=== PATIENT | female | born 1935 | race Caucasian/White ===

== ENCOUNTER 2017-11-08 12:11 | Outpatient (CLI) | payer MEDICARE, OTHER | END 2017-11-08 12:12 | disposition home or self-care (01) | LOC: BICMAMMO 12:11 | PROVIDERS: ATTEND Internal Medicine | DX: Z12.31 Encounter for screening mammogram for malignant neoplasm of breast (principal) | CPT/HCPCS: 77063; 77067 ==

== ENCOUNTER 2019-04-29 09:42 | Outpatient (CLI) | payer MEDICARE ==
--- NOTE | 2019-04-29 10:11 | ULT ---
US Gallbladder RUQ: 04/29/2019 12:00 AM CLINICAL HISTORY: Abnormal LFTs. STUDY: Limited right upper quadrant ultrasound of abdomen. COMPARISON: None. FINDINGS: Liver: Size: Normal. Echogenicity: Normal. Contour: Smooth. Mass: None. Bile ducts: No intrahepatic or extrahepatic biliary dilatation. Common bile duct measures 2 mm. Gallbladder: Normal. Pancreas: Head, body, and tail appear normal. Right kidney: No pelvicalyceal dilatation. Right kidney measuring 9.1 cm in length. IMPRESSION: Unremarkable exam.
== END 2019-04-29 09:43 | disposition home or self-care (01) ==
LOC: ULT 09:42
PROVIDERS: ATTEND Internal Medicine
DX: R94.5 Abnormal results of liver function studies (principal)
CPT/HCPCS: 76705

== ENCOUNTER 2019-07-03 09:50 | Outpatient (CLI) | payer MEDICARE ==
--- NOTE | 2019-07-03 10:37 | CT ---
CT of theabdomen and pelvis: 07/03/2019 COMPARISON:03/08/2015 HISTORY:Abnormal weight loss, abnormal liver function tests TECHNIQUE: Serial axial CT imaging at5 mm from thelung bases through pubic symphysis with IV and oral contrast. Coronal and sagittal reformatted imaging obtained Findings:Imaged lung bases unremarkable. Cholecystectomy clips present. No free intraperitoneal air o r fluid. Stable moderate sized sliding hiatal hernia. The liver, spleen, pancreas, adrenal glands, and kidneys appear grossly unremarkable. Uterus appears surgically absent. There is extensive diverticulosis of the distal descending colon an d the sigmoid colon with no evidence for acute diverticulitis. No evidence for bowel inflammatory change or bowel obstruction. Scattered atherosclerotic calcification of the abdominal aorta and its branches. No lymphadenopathy is noted within the retroperitoneum, the mesentery, or the pelvis. The osseous structures demonstrate lower lumbar spine facet hypertrophy and degenerative change at th e pubic symphysis with no worrisome lytic or blastic bone lesion. Impression:Incidental findings as detailed above. No acute findings are noted.
[2019-07-03] MEDS ORDERED: Iopamidol 370 76% 100 ML VIAL ONE (16:25)
== END 2019-07-03 09:51 | disposition home or self-care (01) ==
LOC: CT 09:50
PROVIDERS: ATTEND Physician Assistant Medical
DX: R63.4 Abnormal weight loss (principal); R94.5 Abnormal results of liver function studies
CPT/HCPCS: 74177; Q9967

== ENCOUNTER 2019-11-08 08:57 | Emergency (ER) | payer MEDICARE ==
[2019-11-08] MEDS ORDERED: Aspirin Chewable 81 MG TAB ONE (09:20)
[2019-11-08] MEDS ORDERED: Acetaminophen 500 MG TAB ONE (09:20)
[2019-11-08 09:25] LABS: #Basophils 0.1 thou/uL (0.0-0.2); #Eosinphils 0.1 thou/uL (0.0-0.7); #Monocytes 0.9 thou/uL (0.11-0.59); #Neutrophils 9.1 thou/uL (1.40-6.50); %Basophils 0.5 % (0.0-1.0); %Eosinophils 1.1 % (0.0-10.0); %Monocytes 6.5 % (0.0-10.0); Hemoglobin 12.2 g/dL (12.0-16.0); Mean Corpuscular HGB CONC 33.1 g/dL (32.0-36.0); Mean Corpuscular Hemoglobin 29.6 pg (27.0-31.0); Mean Corpuscular Volume 89.6 fL (78.0-98.0); Platelet Count 261 thou/uL (130-400); RBC Distribution Width 13.4 % (11.5-14.5); Red Blood Cell (RBC) Count 4.12 mill/uL (4.20-5.40); White Blood Cell (WBC) Count 13.1 thou/uL (4.8-10.8)
--- NOTE | 2019-11-08 09:27 | RAD ---
EXAM: Single view of the chest HISTORY: Chest pain COMPARISON: 08/05/2019 FINDINGS: Single view of the chest shows a normal sized cardiomediastinal silhouette. A pacemaker se en with leads in the right atrium and ventricle. There is no evidence of consolidation, mass, or pleural effusion. The bones are unremarkable. IMPRESSION: No evidence of acute cardiopulmonary disease
[2019-11-08] MEDS ORDERED: Iopamidol-370 76% 500 ML 1 ML ONE (09:37)
[2019-11-08 09:39] LABS: ALT (SGPT) 39 U/L (8-55); AST (SGOT) 41 U/L (5-34); Albumin 4.2 g/dL (3.4-4.8); Alkaline Phosphatase 85 U/L (40-110); Anion Gap 16 mmol/L (10-20); BUN (Urea Nitrogen) 35 mg/dL (9.8-20.1); Bilirubin, Total 0.5 mg/dL (0.2-1.2); CK (CPK) 37 U/L (29-168); Calc. Creatinine Clearance 0 mL/min (70-130); Calcium 9.2 mg/dL (7.8-10.44); Carbon Dioxide 23 mmol/L (23-31); Chloride 105 mmol/L (98-107); Estimated GFR-MDRD 40; Globulin 3.3 g/dL (2.4-3.5); Glucose 183 mg/dL (83-110); Potassium 4.5 mmol/L (3.5-5.1); Protein, Total 7.5 g/dL (6.0-8.3); Sodium 139 mmol/L (136-145)
[2019-11-08] MEDS ORDERED: methylPREDNISolone Sod Succ/PF 125 MG/2 ML VIAL ONE (11:27)
[2019-11-08] MEDS ORDERED: diphenhydrAMINE 50 MG/ML VIAL ONE (11:27)
[2019-11-08] MEDS ORDERED: Famotidine/PF 20 mg/2ml Vial ONE (11:27)
--- NOTE | 2019-11-08 12:30 | CT ---
EXAM: CTA of the chest HISTORY: Chest pain since yesterday evening COMPARISON: None TECHNIQUE: Multiple contiguous axial images were obtained a CTA of the chest with contrast per pulmon darrian embolism protocol. 3-D oblique MIP reformats and direct coronal reformats were performed. FINDINGS: HEART: Normal in size. There is a small pericardial effusion. A pacemaker seen with leads in the righ t atrium and ventricle. Atherosclerotic calcifications in the coronary arteries and aorta. PULMONARY ARTERIES: Normal in caliber without filling defects to suggest pulmonary emboli. MEDIASTINUM: No hilar or mediastinal lymphadenopathy. Moderate hiatal hernia LUNGS: No focal infiltrates or masses. PLEURAL SPACE: No pleural effusion or pneumothorax. CHEST WALL SOFT TISSUES: Unremarkable VISUALIZED OSSEOUS STRUCTURES: Degenerative changes in the spine. VISUALIZED SUBDIAPHRAGMATIC STRUCTURES: Unremarkable IMPRESSION: 1. No evidence of pulmonary thromboembolism 2. Pericardial effusion 3. Hiatal hernia
== END 2019-11-08 13:20 | disposition home or self-care (01) ==
LOC: ERS 08:57
DX: I31.3 Pericardial effusion (noninflammatory) (principal); R07.89 Other chest pain; I25.10 Atherosclerotic heart disease of native coronary artery without angina pectoris; I48.91 Unspecified atrial fibrillation; E11.9 Type 2 diabetes mellitus without complications; I10 Essential (primary) hypertension; Z79.84 Long term (current) use of oral hypoglycemic drugs; Z79.899 Other long term (current) drug therapy; Z79.82 Long term (current) use of aspirin
CPT/HCPCS: 71045; 71275; 80053; 82550; 84484; 85025; 93005; 94760; 96374; 96375; J1200; J2930; Q9967; S0028

== ENCOUNTER 2020-08-09 05:11 | Observation (INO) | payer MEDICARE ==
[2020-08-09] MEDS ORDERED: Aspirin Chewable 81 MG TAB ONE (05:32)
[2020-08-09] MEDS ORDERED: Acetaminophen 325 MG TAB ONE (05:32)
[2020-08-09 05:49] LABS: #Eosinphils 0.2 thou/uL (0.0-0.7); #Lymphocytes 1.7 thou/uL (1.20-3.40); #Monocytes 0.8 thou/uL (0.11-0.59); #Neutrophils 7.6 thou/uL (1.40-6.50); %Basophils 0.3 % (0.0-1.0); %Eosinophils 2.1 % (0.0-10.0); %Lymphocytes 16.8 % (21.0-51.0); %Monocytes 7.3 % (0.0-10.0); %Neutrophils 73.6 % (42.0-75.0); Hemoglobin 13.7 g/dL (12.0-16.0); Mean Corpuscular HGB CONC 31.9 g/dL (32.0-36.0); Mean Corpuscular Hemoglobin 26.8 pg (27.0-31.0); Mean Platelet Volume 7.8 fL (7.4-10.4); Platelet Count 261 thou/uL (130-400); RBC Distribution Width 15.1 % (11.5-14.5); Red Blood Cell (RBC) Count 5.12 mill/uL (4.20-5.40); White Blood Cell (WBC) Count 10.3 thou/uL (4.8-10.8)
[2020-08-09 06:08] LABS: ALT (SGPT) 12 U/L (8-55); AST (SGOT) 18 U/L (5-34); Albumin 3.8 g/dL (3.4-4.8); Alkaline Phosphatase 89 U/L (40-110); Anion Gap 16 mmol/L (10-20); BUN (Urea Nitrogen) 42 mg/dL (9.8-20.1); Bilirubin, Total 0.4 mg/dL (0.2-1.2); Calc. Creatinine Clearance 0 mL/min (70-130); Calcium 9.4 mg/dL (7.8-10.44); Carbon Dioxide 23 mmol/L (23-31); Chloride 104 mmol/L (98-107); Globulin 3.1 g/dL (2.4-3.5); Glucose 178 mg/dL (83-110); Potassium 4.6 mmol/L (3.5-5.1); Protein, Total 6.9 g/dL (5.8-8.1); Sodium 138 mmol/L (136-145)
[2020-08-09] MEDS ORDERED: Labetalol HCl 100 MG/20 ML VIAL ONE (06:32)
[2020-08-09] MEDS ORDERED: Dextrose 50% Abboject 50 ML SYRINGE SLOW IVP PRN (08:59)
[2020-08-09] MEDS ORDERED: Acetaminophen 325 MG TAB PO PRN (08:59)
[2020-08-09] MEDS ORDERED: HumaLOG 300 UNITS/3 ML VIAL SC PRN (08:59)
[2020-08-09] MEDS ORDERED: Ondansetron ODT 4 MG TAB PO PRN (08:59)
[2020-08-09] MEDS ORDERED: Dextrose 5% in Water 1,000 ML IV PRN (08:59)
[2020-08-09] MEDS ORDERED: Aspirin 325 mg Enteric Coated Tablet PO SCH (09:00)
[2020-08-09] MEDS ORDERED: Enoxaparin Sodium 40 MG/0.4 ML SYRINGE SC SCH (09:00)
[2020-08-09] MEDS ORDERED: Sodium Chloride 0.9% 1,000 ML IV SCH (09:15)
[2020-08-09 10:45] VITALS: BMI 22.6
[2020-08-09 15:33] VITALS: BP 173/76; TEMP 98.5
[2020-08-09 17:43] LABS: SARS-CoV-2 PCR NAA for Saliva Not Detected (NotDetected)
== END 2020-08-09 17:10 | disposition home or self-care (01) ==
LOC: ERS 05:11 → SUATTDRO 05:11 → 2SE 08:59
PROVIDERS: ADMIT Internal Medicine; ATTEND Internal Medicine
DX: R51.9 Headache, unspecified (principal); T50.B95A Adverse effect of other viral vaccines, initial encounter; R47.01 Aphasia; R53.1 Weakness; E11.22 Type 2 diabetes mellitus with diabetic chronic kidney disease; I12.9 Hypertensive chronic kidney disease with stage 1 through stage 4 chronic kidney disease, or unspecified chronic kidney disease; N18.30 Chronic kidney disease, stage 3 unspecified; I48.91 Unspecified atrial fibrillation; I25.10 Atherosclerotic heart disease of native coronary artery without angina pectoris; E78.5 Hyperlipidemia, unspecified; I45.10 Unspecified right bundle-branch block; I70.0 Atherosclerosis of aorta; Z66 Do not resuscitate; Z79.82 Long term (current) use of aspirin; Z79.84 Long term (current) use of oral hypoglycemic drugs; Z79.899 Other long term (current) drug therapy; Z91.041 Radiographic dye allergy status; Z95.0 Presence of cardiac pacemaker; Z20.822 Contact with and (suspected) exposure to COVID-19
CPT/HCPCS: 70450; 70551; 71045; 80053; 82962; 85025; 85652; 93005; 93880; 96372; 96374; 97139 ×4; 99285; G0378 ×2; U0003; U0005; 36416; 87635; J1650; J1815

== ENCOUNTER 2021-05-31 07:30 | Inpatient (IN) | payer MEDICARE ==
[2021-05-30 14:55] VITALS: BMI 24.6
[2021-05-31 08:34] LABS: Hemoglobin 13.8 g/dL (12.0-15.5); Mean Corpuscular HGB CONC 31.9 g/dL (32.0-36.0); Mean Corpuscular Hemoglobin 28.3 pg (27.0-33.0); Mean Corpuscular Volume 88.9 fl (81.6-98.3); Mean Platelet Volume 9.7 fl (7.4-10.4); Platelet Count 218 10x3/uL (150-450); RBC Distribution Width 15.8 % (11.5-14.5); Red Blood Cell (RBC) Count 4.87 10x6/uL (3.90-5.03)
[2021-05-31 08:43] LABS: Prothrombin Time 11.3 sec (9.5-12.1)
[2021-05-31 08:49] LABS: ALT (SGPT) 11 U/L (8-55); AST (SGOT) 15 U/L (5-34); Albumin 3.8 g/dL (3.4-4.8); Alkaline Phosphatase 88 U/L (40-110); Anion Gap 11 mmol/L (10-20); BUN (Urea Nitrogen) 29 mg/dL (9.8-20.1); Bilirubin, Total 0.5 mg/dL (0.2-1.2); Calc. Creatinine Clearance 0 mL/min (70-130); Calcium 9.4 mg/dL (7.8-10.44); Carbon Dioxide 27 mmol/L (23-31); Chloride 106 mmol/L (98-107); Globulin 2.9 g/dL (2.4-3.5); Glucose 172 mg/dL (83-110); Potassium 4.8 mmol/L (3.5-5.1); Protein, Total 6.7 g/dL (5.8-8.1); Sodium 139 mmol/L (136-145)
[2021-05-31 22:52] LABS: SARS-CoV-2 PCR by NAA Not Detected (NotDetected)
[2021-06-02] MEDS ORDERED: CEFAZOLIN 1 GM VIAL ONE (12:47)
[2021-06-02] MEDS ORDERED: Protamine Sulfate 50 MG/5 ML VIAL ONE (12:47)
[2021-06-02] MEDS ORDERED: Famotidine/PF 20 mg/2ml Vial ONE (12:47)
[2021-06-02] MEDS ORDERED: diphenhydrAMINE 50 MG/ML VIAL ONE (12:47)
[2021-06-02] MEDS ORDERED: Heparin 10,000 UNITS/ 10 ML VIAL ONE (13:18)
[2021-06-02] MEDS ORDERED: PROPOFOL 200 MG/20 ML VIAL ONE (13:23)
[2021-06-02] MEDS ORDERED: Glycopyrrolate 0.2 MG/ML 5 ML SYRINGE ONE (13:23)
[2021-06-02] MEDS ORDERED: ePHEDrine 50 MG/ML VIAL ONE (13:23)
[2021-06-02] MEDS ORDERED: Rocuronium Bromide 10 MG/ML (10ML VIAL) ONE (13:23)
[2021-06-02] MEDS ORDERED: Ondansetron PF 4 MG/2 ML Vial ONE (13:23)
[2021-06-02] MEDS ORDERED: methylPREDNISolone Sod Succ/PF 125 MG/2 ML VIAL ONE (13:25)
[2021-06-02] MEDS ORDERED: Iopamidol 370 76% 100 ML VIAL ONE (14:04)
== END 2021-06-02 19:25 | disposition home or self-care (01) | DRG 274 ==
LOC: SURG A 06-02 10:32
PROVIDERS: ADMIT Internal Medicine Cardiovascular Disease; ATTEND Internal Medicine Cardiovascular Disease
PROC: 02L73DK Occlusion of Left Atrial Appendage with Intraluminal Device, Percutaneous Approach (ICD-10-PCS; principal; 2021-06-02)
PROC: B24BZZ4 Ultrasonography of Heart with Aorta, Transesophageal (ICD-10-PCS; 2021-06-02)
DX: I48.21 Permanent atrial fibrillation (principal); I50.22 Chronic systolic (congestive) heart failure; Z00.6 Encounter for examination for normal comparison and control in clinical research program; Z20.822 Contact with and (suspected) exposure to COVID-19; I42.8 Other cardiomyopathies; I25.10 Atherosclerotic heart disease of native coronary artery without angina pectoris; I11.0 Hypertensive heart disease with heart failure; E11.9 Type 2 diabetes mellitus without complications; E78.00 Pure hypercholesterolemia, unspecified; M19.90 Unspecified osteoarthritis, unspecified site; Z95.1 Presence of aortocoronary bypass graft; Z86.73 Personal history of transient ischemic attack (TIA), and cerebral infarction without residual deficits; Z98.890 Other specified postprocedural states; Z90.710 Acquired absence of both cervix and uterus; Z90.49 Acquired absence of other specified parts of digestive tract; Z87.898 Personal history of other specified conditions; Z82.49 Family history of ischemic heart disease and other diseases of the circulatory system; Z79.01 Long term (current) use of anticoagulants; Z79.84 Long term (current) use of oral hypoglycemic drugs; Z79.899 Other long term (current) drug therapy; Z95.0 Presence of cardiac pacemaker; I44.2 Atrioventricular block, complete; Z91.041 Radiographic dye allergy status; R58 Hemorrhage, not elsewhere classified
CPT/HCPCS: 33340; 36430; 80053; 85027; 85347; 85610; 86850; 86900; 86901; 93312; 93662; C1759; C1776; J0690; J1200; J1644; J2405; J2704; J2720; J2930; J3490; Q9967; S0028; U0003; U0005

== ENCOUNTER 2021-05-31 07:40 | Outpatient (CLI) | payer MEDICARE | END 2021-05-31 07:41 | disposition home or self-care (01) | LOC: LABBT 07:40 | PROVIDERS: ATTEND Internal Medicine Cardiovascular Disease | DX: Z01.812 Encounter for preprocedural laboratory examination (principal); I48.21 Permanent atrial fibrillation; G45.9 Transient cerebral ischemic attack, unspecified; R58 Hemorrhage, not elsewhere classified; Z20.822 Contact with and (suspected) exposure to COVID-19 | CPT/HCPCS: 80053; 85027; 85610; 86850; 86900; 86901; 86920; U0003; U0005 ==

== ENCOUNTER 2021-07-11 08:11 | Outpatient (CLI) | payer MEDICARE ==
[2021-07-11 10:02] LABS: Hemoglobin 13.7 g/dL (12.0-15.5); Mean Corpuscular Hemoglobin 28.4 pg (27.0-33.0); Mean Corpuscular Volume 91.5 fl (81.6-98.3); Mean Platelet Volume 10.3 fl (7.4-10.4); Platelet Count 256 10x3/uL (150-450); Red Blood Cell (RBC) Count 4.83 10x6/uL (3.90-5.03); White Blood Cell (WBC) Count 8.9 10x3/uL (3.5-10.5)
[2021-07-11 10:26] LABS: Prothrombin Time 10.6 sec (9.5-12.1)
[2021-07-11 10:47] LABS: ALT (SGPT) 13 U/L (8-55); AST (SGOT) 15 U/L (5-34); Albumin 3.9 g/dL (3.4-4.8); Alkaline Phosphatase 99 U/L (40-110); Anion Gap 14 mmol/L (10-20); BUN (Urea Nitrogen) 37 mg/dL (9.8-20.1); Bilirubin, Total 0.5 mg/dL (0.2-1.2); Calc. Creatinine Clearance 0 mL/min (70-130); Calcium 9.3 mg/dL (7.8-10.44); Carbon Dioxide 26 mmol/L (23-31); Chloride 106 mmol/L (98-107); Glucose 144 mg/dL (83-110); Potassium 4.6 mmol/L (3.5-5.1); Protein, Total 6.9 g/dL (5.8-8.1); Sodium 141 mmol/L (136-145)
[2021-07-11 21:46] LABS: SARS-CoV-2 PCR by NAA Not Detected (NotDetected)
== END 2021-07-11 08:12 | disposition home or self-care (01) ==
LOC: LABBT 08:11
PROVIDERS: ATTEND Internal Medicine Cardiovascular Disease
DX: Z01.812 Encounter for preprocedural laboratory examination (principal); I48.21 Permanent atrial fibrillation; Z95.818 Presence of other cardiac implants and grafts; Z20.822 Contact with and (suspected) exposure to COVID-19; E78.5 Hyperlipidemia, unspecified; I48.0 Paroxysmal atrial fibrillation; E55.9 Vitamin D deficiency, unspecified; E11.9 Type 2 diabetes mellitus without complications
CPT/HCPCS: 80053 ×2; 80061; 82306; 83036; 84439; 84443; 85027; 85610; U0003; U0005; 36415

== ENCOUNTER 2021-07-14 06:28 | Day surgery (SDC) | payer MEDICARE ==
[2021-07-11 13:23] VITALS: BMI 24.6
[2021-07-14] MEDS ORDERED: Lidocaine 1% PF 5 ML VIAL ONE (07:11)
[2021-07-14] MEDS ORDERED: PROPOFOL 40 ML ONE (07:11)
[2021-07-14] MEDS ORDERED: PHENYLEPHRINE-NS 100 MCG/ML 10 ML SYRINGE ONE (07:35)
== END 2021-07-14 08:24 | disposition home or self-care (01) ==
LOC: CCL 06:28 → EDSTATUS 08:15 → CCL 08:24
PROVIDERS: ATTEND Internal Medicine Cardiovascular Disease
PROC: B246ZZ4 Ultrasonography of Right and Left Heart, Transesophageal (ICD-10-PCS; principal; 2021-07-14)
DX: I48.21 Permanent atrial fibrillation (principal); I44.2 Atrioventricular block, complete; I11.0 Hypertensive heart disease with heart failure; I50.22 Chronic systolic (congestive) heart failure; I25.10 Atherosclerotic heart disease of native coronary artery without angina pectoris; E78.00 Pure hypercholesterolemia, unspecified; E11.9 Type 2 diabetes mellitus without complications; I42.8 Other cardiomyopathies; Z86.73 Personal history of transient ischemic attack (TIA), and cerebral infarction without residual deficits; Z79.01 Long term (current) use of anticoagulants; Z79.82 Long term (current) use of aspirin; Z79.84 Long term (current) use of oral hypoglycemic drugs; Z79.899 Other long term (current) drug therapy; Z91.041 Radiographic dye allergy status; Z95.0 Presence of cardiac pacemaker; Z95.818 Presence of other cardiac implants and grafts
CPT/HCPCS: 93312; J2704

== ENCOUNTER 2021-10-31 13:26 | Inpatient (IN) | payer MEDICARE ==
[2021-10-31 15:05] LABS: Bilirubin Negative (Negative); Blood, Urine Negative (Negative); Clarity Clear (Clear); Glucose, Urine (Dipstick) Normal (Negative); Ketone, Urine Negative (Negative); Leukocyte Negative Leu/uL (Negative); Nitrite Negative (Negative); Protein, Urine (Dipstick) Negative (Neg-Trace); Urobilinogen Normal mg/dL (Less than 2); pH, Urine 5.5 (5.0-9.0)
[2021-10-31 16:01] LABS: #Eosinphils 0.2 thou/uL (0.0-0.7); #Lymphocytes 1.4 thou/uL (1.20-3.40); #Monocytes 0.6 thou/uL (0.11-0.59); %Basophils 0.2 % (0.0-1.0); %Eosinophils 3.3 % (0.0-10.0); %Lymphocytes 22.5 % (21.0-51.0); %Monocytes 9.1 % (0.0-10.0); %Neutrophils 64.9 % (42.0-75.0); Hemoglobin 14.2 g/dL (12.0-16.0); Mean Corpuscular HGB CONC 32.4 g/dL (32.0-36.0); Mean Corpuscular Hemoglobin 29.2 pg (27.0-31.0); Mean Corpuscular Volume 90.2 fL (78.0-98.0); Mean Platelet Volume 6.8 fL (7.4-10.4); Platelet Count 262 thou/uL (130-400); RBC Distribution Width 13.7 % (11.5-14.5); Red Blood Cell (RBC) Count 4.86 mill/uL (4.20-5.40); White Blood Cell (WBC) Count 6.2 thou/uL (4.8-10.8)
[2021-10-31 16:25] LABS: ALT (SGPT) 11 U/L (8-55); AST (SGOT) 17 U/L (5-34); Albumin 4.1 g/dL (3.4-4.8); Alkaline Phosphatase 85 U/L (40-110); Anion Gap 16 mmol/L (10-20); BUN (Urea Nitrogen) 38 mg/dL (9.8-20.1); Bilirubin, Total 0.5 mg/dL (0.2-1.2); Calc. Creatinine Clearance 0 mL/min (70-130); Calcium 9.7 mg/dL (7.8-10.44); Carbon Dioxide 23 mmol/L (23-31); Chloride 108 mmol/L (98-107); Globulin 3.4 g/dL (2.4-3.5); Glucose 108 mg/dL (83-110); Potassium 4.5 mmol/L (3.5-5.1); Protein, Total 7.5 g/dL (5.8-8.1); Sodium 142 mmol/L (136-145)
[2021-10-31 16:47] LABS: CKMB 2.1 ng/mL (0-6.6)
[2021-10-31] MEDS ORDERED: Acetaminophen 325 MG TAB PO PRN (18:52)
[2021-10-31] MEDS ORDERED: Ondansetron PF 4 MG/2 ML Vial IVP PRN (18:52)
[2021-10-31] MEDS ORDERED: Ondansetron ODT 4 MG TAB PO PRN (18:52)
[2021-10-31] MEDS ORDERED: Dextrose 50% Abboject 50 ML SYRINGE SLOW IVP PRN (18:58)
[2021-10-31] MEDS ORDERED: hydrALAZINE 20 MG/ML VIAL SLOW IVP PRN (18:58)
[2021-10-31] MEDS ORDERED: HumaLOG 300 UNITS/3 ML VIAL SC PRN (18:58)
[2021-10-31] MEDS ORDERED: Dextrose 5% in Water 1,000 ML IV PRN (18:58)
[2021-10-31] MEDS ORDERED: Amlodipine 5 MG TAB ONE (19:16)
[2021-10-31] MEDS ORDERED: Aspirin Chewable 81 MG TAB ONE (19:16)
[2021-10-31 22:12] VITALS: BMI 24.8
[2021-10-31] MEDS: Atorvastatin Calcium 40 MG TAB PO SCH (22:23)
[2021-10-31 23:10] LABS: CKMB 2.2 ng/mL (0-6.6)
[2021-11-01 05:19] LABS: #Eosinphils 0.3 thou/uL (0.0-0.7); #Lymphocytes 1.1 thou/uL (1.20-3.40); #Monocytes 0.7 thou/uL (0.11-0.59); %Eosinophils 5.4 % (0.0-10.0); %Lymphocytes 17.8 % (21.0-51.0); %Monocytes 11.5 % (0.0-10.0); %Neutrophils 65.3 % (42.0-75.0); Mean Corpuscular HGB CONC 33.7 g/dL (32.0-36.0); Mean Corpuscular Hemoglobin 30.3 pg (27.0-31.0); Mean Corpuscular Volume 89.7 fL (78.0-98.0); Mean Platelet Volume 7.1 fL (7.4-10.4); Platelet Count 230 thou/uL (130-400); RBC Distribution Width 13.6 % (11.5-14.5); Red Blood Cell (RBC) Count 4.61 mill/uL (4.20-5.40); White Blood Cell (WBC) Count 6.2 thou/uL (4.8-10.8)
[2021-11-01 05:42] LABS: Anion Gap 14 mmol/L (10-20); BUN (Urea Nitrogen) 29 mg/dL (9.8-20.1); Calc. Creatinine Clearance 37 mL/min (70-130); Calcium 9.6 mg/dL (7.8-10.44); Carbon Dioxide 21 mmol/L (23-31); Chloride 109 mmol/L (98-107); Glucose 117 mg/dL (83-110); Magnesium 1.8 mg/dL (1.6-2.6); Sodium 140 mmol/L (136-145)
[2021-11-01] MEDS: Aspirin 81 mg Enteric Coated Tablet PO SCH (08:32)
[2021-11-01 14:21] LABS: CKMB 1.5 ng/mL (0-6.6)
[2021-11-01] MEDS: HumaLOG 300 UNITS/3 ML VIAL SC PRN (16:59)
[2021-11-01] MEDS: Atorvastatin Calcium 40 MG TAB PO SCH (22:15)
[2021-11-02] MEDS ORDERED: Cepastat Lozenges 1 LOZ PO PRN (08:00)
[2021-11-02] MEDS ORDERED: Loperamide HCl 2 MG CAP PO PRN (08:00)
[2021-11-02] MEDS ORDERED: Loratadine 10 MG TAB PO PRN (08:00)
[2021-11-02] MEDS ORDERED: GUAIFENESIN SF SOLN 200 MG/10 ML UDCUP PO PRN (08:00)
[2021-11-02] MEDS ORDERED: Calcium Carbonate 500 MG ChewTAB PO PRN (08:00)
[2021-11-02] MEDS ORDERED: HYDROcodone/Acetaminophen 5/325 mg Tablet PO PRN (08:00)
[2021-11-02] MEDS ORDERED: Artificial Tear Sol 15 ML BOT EA EYE PRN (08:00)
[2021-11-02] MEDS ORDERED: Zolpidem Tartrate 5 MG TAB PO PRN (08:00)
[2021-11-02] MEDS ORDERED: Moisturizing Cream (Eucerin) 113 GM JAR TOP PRN (08:00)
[2021-11-02] MEDS ORDERED: Senokot S 8.6-50 MG TAB PO PRN ×2 (08:00→11:45)
[2021-11-02] MEDS ORDERED: hydrALAZINE 20 MG/ML VIAL SLOW IVP PRN (08:01)
[2021-11-02] MEDS: Aspirin 81 mg Enteric Coated Tablet PO SCH (09:52)
[2021-11-02] MEDS ORDERED: PROPOFOL 200 MG/20 ML VIAL ONE (14:20)
[2021-11-02] MEDS ORDERED: PROPOFOL 20 ML ONE ×2 (14:26→14:49)
[2021-11-03 05:15] LABS: #Eosinphils 0.3 thou/uL (0.0-0.7); #Lymphocytes 1.6 thou/uL (1.20-3.40); #Monocytes 0.7 thou/uL (0.11-0.59); %Basophils 0.4 % (0.0-1.0); %Eosinophils 4.4 % (0.0-10.0); %Lymphocytes 24.5 % (21.0-51.0); %Monocytes 10.4 % (0.0-10.0); %Neutrophils 60.4 % (42.0-75.0); Hemoglobin 14.3 g/dL (12.0-16.0); Mean Corpuscular HGB CONC 32.1 g/dL (32.0-36.0); Mean Corpuscular Hemoglobin 29.2 pg (27.0-31.0); Mean Platelet Volume 6.9 fL (7.4-10.4); Platelet Count 245 thou/uL (130-400); RBC Distribution Width 13.8 % (11.5-14.5); Red Blood Cell (RBC) Count 4.89 mill/uL (4.20-5.40); White Blood Cell (WBC) Count 6.5 thou/uL (4.8-10.8)
[2021-11-03 05:33] LABS: Anion Gap 12 mmol/L (10-20); BUN (Urea Nitrogen) 31 mg/dL (9.8-20.1); Calc. Creatinine Clearance 37 mL/min (70-130); Calcium 9.4 mg/dL (7.8-10.44); Carbon Dioxide 22 mmol/L (23-31); Cardiac Risk 4.1 (Less than 4.5); Chloride 110 mmol/L (98-107); Cholesterol 126 mg/dl (< 200 Desired); Glucose 102 mg/dL (83-110); HDL Cholesterol 31 mg/dL (>60 Neg Risk); LDL Cholesterol, Calculated 77 mg/dL; Potassium 4.2 mmol/L (3.5-5.1); Sodium 140 mmol/L (136-145); Triglycerides 92 mg/dL (Less than 150)
[2021-11-03] MEDS: Amlodipine 5 MG TAB PO SCH (10:15)
[2021-11-03] MEDS: Apixaban 2.5 MG TAB PO SCH ×2 (10:15→20:21)
[2021-11-03] MEDS: HumaLOG 300 UNITS/3 ML VIAL SC PRN (11:47)
[2021-11-03] MEDS ORDERED: Iopamidol 370 76% 100 ML VIAL ONE (12:08)
[2021-11-03] MEDS ORDERED: predniSONE 50 MG TAB PO SCH (20:00)
[2021-11-04] MEDS ORDERED: predniSONE 50 MG TAB PO SCH ×2 (02:00→08:00)
[2021-11-04] MEDS: HumaLOG 300 UNITS/3 ML VIAL SC PRN ×2 (06:04→11:37)
[2021-11-04] MEDS ORDERED: diphenhydrAMINE 25 MG CAP PO SCH (08:00)
[2021-11-04] MEDS: Amlodipine 5 MG TAB PO SCH (08:27)
[2021-11-04] MEDS: Apixaban 2.5 MG TAB PO SCH (08:27)
[2021-11-04] MEDS ORDERED: Lisinopril 20 MG TAB PO SCH (09:00)
[2021-11-04 11:34] VITALS: BP 133/71; TEMP 98.3
== END 2021-11-04 13:25 | disposition home or self-care (01) | DRG 65 ==
LOC: ERS 13:26 → ERHOLD 17:18 → NEURO 22:12 → OBSVTOIN 11-01 15:07
PROVIDERS: ADMIT Internal Medicine; ATTEND Internal Medicine
PROC: B24BZZ4 Ultrasonography of Heart with Aorta, Transesophageal (ICD-10-PCS; principal; 2021-11-02)
DX: I63.40 Cerebral infarction due to embolism of unspecified cerebral artery (principal); I50.22 Chronic systolic (congestive) heart failure; I13.0 Hypertensive heart and chronic kidney disease with heart failure and stage 1 through stage 4 chronic kidney disease, or unspecified chronic kidney disease; I44.2 Atrioventricular block, complete; I48.21 Permanent atrial fibrillation; Z20.822 Contact with and (suspected) exposure to COVID-19; I25.10 Atherosclerotic heart disease of native coronary artery without angina pectoris; E78.5 Hyperlipidemia, unspecified; E11.22 Type 2 diabetes mellitus with diabetic chronic kidney disease; R29.701 NIHSS score 1; E78.00 Pure hypercholesterolemia, unspecified; Z60.2 Problems related to living alone; N18.30 Chronic kidney disease, stage 3 unspecified; Z95.0 Presence of cardiac pacemaker; Z90.49 Acquired absence of other specified parts of digestive tract; Z90.710 Acquired absence of both cervix and uterus; Z86.73 Personal history of transient ischemic attack (TIA), and cerebral infarction without residual deficits; Z91.041 Radiographic dye allergy status; Z79.84 Long term (current) use of oral hypoglycemic drugs; Z79.899 Other long term (current) drug therapy; Z79.01 Long term (current) use of anticoagulants; Z88.8 Allergy status to other drugs, medicaments and biological substances; Z82.49 Family history of ischemic heart disease and other diseases of the circulatory system; Z79.02 Long term (current) use of antithrombotics/antiplatelets
CPT/HCPCS: 36415; 36416; 70450; 70496; 70551; 80048; 80053; 80061; 81003; 82553; 83735; 83880; 84484; 85025; 93005; 93312; 93880; G0378; J1815; J2704; J7512; Q9967; U0003; U0005

== ENCOUNTER 2022-04-20 14:50 | Outpatient (CLI) | payer MEDICARE | END 2022-04-20 14:51 | disposition home or self-care (01) | LOC: RAD 14:50 | PROVIDERS: ATTEND Internal Medicine Critical Care Medicine | DX: R06.00 Dyspnea, unspecified (principal) | CPT/HCPCS: 71046 ==

== ENCOUNTER 2023-10-25 07:37 | Outpatient (CLI) | payer MEDICARE, BC | END 2023-10-25 07:38 | disposition home or self-care (01) | LOC: CT 07:37 | PROVIDERS: ATTEND Internal Medicine | DX: R47.01 Aphasia (principal); R90.89 Other abnormal findings on diagnostic imaging of central nervous system; I65.23 Occlusion and stenosis of bilateral carotid arteries | CPT/HCPCS: 70450 ==

== ENCOUNTER 2024-05-25 13:13 | Inpatient (IN) | payer MEDICARE, BC ==
[2024-05-25 14:41] LABS: #Basophils 0.03 10x3/uL (0.0-0.2); #Eosinophils Less than 0.03 10x3/uL (0.0-0.7); %Basophils 0.2 % (0.0-1.0); %Lymphocytes 5.3 % (21.0-51.0); %Monocytes 7.8 % (0.0-10.0); %Neutrophils 86.1 % (42.0-75.0); Hematocrit 44.6 % (36.0-47.0); Hemoglobin 14.2 g/dL (12.0-16.0); Mean Corpuscular HGB CONC 31.8 g/dL (32.0-36.0); Mean Corpuscular Hemoglobin 28.3 pg (27.0-31.0); Mean Corpuscular Volume 88.8 fL (78.0-98.0); Platelet Count 153 10x3/uL (130-400); RBC Distribution Width 16.1 % (11.5-14.5); Red Blood Cell (RBC) Count 5.02 mill/uL (4.20-5.40)
[2024-05-25 14:56] LABS: ALT (SGPT) 38 U/L (8-55); AST (SGOT) 45 U/L (5-34); Albumin 3.7 g/dL (3.4-4.8); Alkaline Phosphatase 96 U/L (40-110); Anion Gap 22 mmol/L (10-20); BUN (Urea Nitrogen) 36 mg/dL (9.8-20.1); Bilirubin, Total 1.6 mg/dL (0.2-1.2); Calc. Creatinine Clearance 0 mL/min (70-130); Calcium 9.2 mg/dL (7.8-10.44); Carbon Dioxide 13 mmol/L (23-31); Chloride 105 mmol/L (98-107); Estimated GFR 38; Globulin 3.1 g/dL (2.4-3.5); Glucose 239 mg/dL (83-110); Potassium 4.5 mmol/L (3.5-5.1); Protein, Total 6.8 g/dL (5.8-8.1); Sodium 135 mmol/L (136-145)
[2024-05-25 15:00] LABS: Troponin I 0.103 ng/mL (< 0.028)
[2024-05-25] MEDS ORDERED: Sodium Chloride 0.9% 100 ML ONE (15:29)
[2024-05-25] MEDS ORDERED: Aspirin Chewable 81 MG TAB ONE (15:29)
[2024-05-25] MEDS ORDERED: Cefepime 2 GM VIAL ONE (15:29)
[2024-05-25] MEDS ORDERED: Furosemide 40 MG (4 mL) VIAL ONE (15:29)
[2024-05-25] MEDS ORDERED: Dextrose 5% in Water 1,000 ML IV PRN (16:07)
[2024-05-25] MEDS ORDERED: Guaifenesin DM 100-10/5 ML UDCUP PO PRN (16:07)
[2024-05-25] MEDS ORDERED: Dextrose 50% Abboject 50 ML SYRINGE SLOW IVP PRN (16:07)
[2024-05-25] MEDS ORDERED: Glucagon 1 MG/ML KIT IM PRN (16:07)
[2024-05-25] MEDS ORDERED: Ondansetron PF 4 MG/2 ML Vial IVP PRN (16:07)
[2024-05-25 16:44] LABS: Magnesium 1.9 mg/dL (1.6-2.6)
[2024-05-25] MEDS: Carvedilol 6.25 MG TAB PO SCH (17:00)
[2024-05-25] MEDS ORDERED: Carvedilol 6.25 MG TAB ONE (18:09)
[2024-05-25 18:16] LABS: Bacteria/HPF None Seen HPF (None Seen); Bilirubin Negative (Negative); Blood, Urine Trace (Negative); CAUTI Indications for Culture Alt mental st,lethar; Clarity Clear (Clear); Glucose, Urine (Dipstick) Greater than 1000 mg/dL (Negative); Ketone, Urine 10 mg/dL (Negative); Leukocyte Negative Leu/uL (Negative); Nitrite Negative (Negative); Protein, Urine (Dipstick) 100 mg/dL (Neg-Trace); RBC/HPF 0-3 HPF (0-3); Specific Gravity, Urine 1.025 (1.002-1.036); Urobilinogen Normal mg/dL (Less than 2); WBC/HPF 0-3 HPF (0-3); pH, Urine 5.5 (5.0-9.0)
[2024-05-25 18:17] LABS: Urine Culture Reflex No No
[2024-05-25 18:40] LABS: Troponin I 0.361 ng/mL (< 0.028)
[2024-05-25 20:50] VITALS: BMI 26.0
[2024-05-25 21:51] LABS: Troponin I 0.481 ng/mL (< 0.028)
[2024-05-25] MEDS: Rosuvastatin 5 MG TAB PO SCH (22:05)
[2024-05-25] MEDS: Famotidine/PF 20 mg/2ml Vial SLOW IVP SCH (22:05)
[2024-05-25] MEDS: guaiFENesin ER 600 MG TAB PO SCH (22:05)
[2024-05-25] MEDS: Insulin Regular, Human 100 UNIT/ML 10 ML VIAL SC PRN (22:20)
[2024-05-26] MEDS: Cefepime 1 GM in Sodium Chloride 0.9% 100 ML IVPB SCH (04:24)
[2024-05-26 04:46] LABS: #Basophils Less than 0.03 10x3/uL (0.0-0.2); #Eosinophils Less than 0.03 10x3/uL (0.0-0.7); %Basophils 0.2 % (0.0-1.0); %Lymphocytes 6.5 % (21.0-51.0); %Monocytes 9.4 % (0.0-10.0); %Neutrophils 83.7 % (42.0-75.0); Hematocrit 44.1 % (36.0-47.0); Hemoglobin 14.4 g/dL (12.0-16.0); Mean Corpuscular HGB CONC 32.7 g/dL (32.0-36.0); Mean Corpuscular Hemoglobin 28.7 pg (27.0-31.0); Mean Platelet Volume 10.5 fL (7.4-10.4); Platelet Count 144 10x3/uL (130-400); RBC Distribution Width 16.2 % (11.5-14.5); Red Blood Cell (RBC) Count 5.01 mill/uL (4.20-5.40)
[2024-05-26 05:05] LABS: ALT (SGPT) 27 U/L (8-55); AST (SGOT) 28 U/L (5-34); Albumin 3.1 g/dL (3.4-4.8); Alkaline Phosphatase 81 U/L (40-110); Anion Gap 16 mmol/L (10-20); BUN (Urea Nitrogen) 43 mg/dL (9.8-20.1); Calc. Creatinine Clearance 24 mL/min (70-130); Calcium 9.3 mg/dL (7.8-10.44); Carbon Dioxide 20 mmol/L (23-31); Chloride 107 mmol/L (98-107); Estimated GFR 36; Globulin 3.3 g/dL (2.4-3.5); Glucose 136 mg/dL (83-110); Magnesium 1.9 mg/dL (1.6-2.6); Potassium 3.9 mmol/L (3.5-5.1); Protein, Total 6.4 g/dL (5.8-8.1); Sodium 139 mmol/L (136-145)
[2024-05-26 05:07] LABS: Critical Call Chem Troponin I RESULT DECREASING; Troponin I 0.446 ng/mL (< 0.028)
[2024-05-26] MEDS: Furosemide 40 MG (4 mL) VIAL SLOW IVP SCH (05:53)
[2024-05-26] MEDS: Enoxaparin 30 MG (0.3 mL) SYRINGE SC SCH (08:46)
[2024-05-26] MEDS: Lisinopril 10 MG TAB PO SCH (08:46)
[2024-05-26] MEDS ORDERED: Electrolyte Replacement Protocol 1 EACH FS PRN (09:27)
[2024-05-26] MEDS ORDERED: Electrolyte Replacement Protocol FS PRN (09:45)
[2024-05-26] MEDS: Magnesium 2 GM/50 ML(in water) 2 GM in Premix 1 BAG IVPB SCH (10:06)
[2024-05-26] MEDS ORDERED: Polyethylene Glycol 3350 17 GM Packet PO PRN (11:15)
[2024-05-26] MEDS: Doxycycline 100 MG CAP PO SCH ×2 (11:33→22:17)
[2024-05-26] MEDS: Aspirin 81 mg Enteric Coated Tablet PO SCH (11:37)
[2024-05-26 15:16] LABS: Magnesium 2.7 mg/dL (1.6-2.6)
[2024-05-26] MEDS: Cholecalciferol 1,000 UNITS (25 MCG) TAB PO SCH (22:17)
[2024-05-26] MEDS: Cyanocobalamin (Vitamin B-12) 1,000 MCG TAB PO SCH (22:18)
[2024-05-26] MEDS: Senokot S 8.6-50 MG TAB PO SCH (22:18)
[2024-05-26] MEDS: Folic Acid 1 MG TAB PO SCH (22:18)
[2024-05-26] MEDS: Multivit, Therapeutic 1 TAB PO SCH (22:18)
[2024-05-26] MEDS: Famotidine 20 MG TAB PO SCH (22:18)
[2024-05-27 04:49] LABS: #Basophils Less than 0.03 10x3/uL (0.0-0.2); %Basophils 0.2 % (0.0-1.0); %Eosinophils 0.6 % (0.0-10.0); %Lymphocytes 8.7 % (21.0-51.0); %Monocytes 9.7 % (0.0-10.0); %Neutrophils 80.5 % (42.0-75.0); Hematocrit 40.4 % (36.0-47.0); Hemoglobin 13.2 g/dL (12.0-16.0); Mean Corpuscular HGB CONC 32.7 g/dL (32.0-36.0); Mean Corpuscular Hemoglobin 28.2 pg (27.0-31.0); Mean Corpuscular Volume 86.3 fL (78.0-98.0); Mean Platelet Volume 10.5 fL (7.4-10.4); Platelet Count 148 10x3/uL (130-400); RBC Distribution Width 15.9 % (11.5-14.5); Red Blood Cell (RBC) Count 4.68 mill/uL (4.20-5.40)
[2024-05-27 04:58] LABS: Anion Gap 17 mmol/L (10-20); BUN (Urea Nitrogen) 48 mg/dL (9.8-20.1); Calc. Creatinine Clearance 30 mL/min (70-130); Carbon Dioxide 18 mmol/L (23-31); Chloride 104 mmol/L (98-107); Estimated GFR 48; Glucose 115 mg/dL (83-110); Potassium 3.6 mmol/L (3.5-5.1); Sodium 135 mmol/L (136-145)
[2024-05-27] MEDS: Aspirin 81 mg Enteric Coated Tablet PO SCH (08:48)
[2024-05-27] MEDS: Dapagliflozin Propanediol 10 MG TAB PO SCH (08:48)
[2024-05-27] MEDS: Furosemide 40 MG TAB PO SCH ×2 (08:49→14:46)
[2024-05-27] MEDS: Famotidine 20 MG TAB PO SCH (09:00)
[2024-05-27] MEDS: Potassium Bicarbonate/Cit Ac 20 MEQ TAB PO SCH ×2 (10:25→18:01)
[2024-05-27] MEDS ORDERED: Insulin Regular 300 UNITS/3 ML VIAL SC PRN ×2 (13:52)
[2024-05-27 16:51] LABS: Potassium 3.4 mmol/L (3.5-5.1)
[2024-05-27] MEDS: Allopurinol 100 MG TAB PO SCH (22:12)
[2024-05-28 05:11] LABS: #Basophils Less than 0.03 10x3/uL (0.0-0.2); %Basophils 0.3 % (0.0-1.0); %Eosinophils 2.2 % (0.0-10.0); %Lymphocytes 13.8 % (21.0-51.0); %Monocytes 11.2 % (0.0-10.0); %Neutrophils 72.2 % (42.0-75.0); Hematocrit 42.4 % (36.0-47.0); Hemoglobin 13.8 g/dL (12.0-16.0); Mean Corpuscular HGB CONC 32.5 g/dL (32.0-36.0); Mean Corpuscular Hemoglobin 28.1 pg (27.0-31.0); Mean Corpuscular Volume 86.4 fL (78.0-98.0); Mean Platelet Volume 10.2 fL (7.4-10.4); Platelet Count 174 10x3/uL (130-400); RBC Distribution Width 15.6 % (11.5-14.5); Red Blood Cell (RBC) Count 4.91 mill/uL (4.20-5.40)
[2024-05-28] MEDS: Furosemide 20 MG (2 mL) VIAL SLOW IVP SCH (05:12)
[2024-05-28 05:23] LABS: Anion Gap 15 mmol/L (10-20); BUN (Urea Nitrogen) 51 mg/dL (9.8-20.1); Calc. Creatinine Clearance 31 mL/min (70-130); Calcium 9.6 mg/dL (7.8-10.44); Carbon Dioxide 26 mmol/L (23-31); Chloride 100 mmol/L (98-107); Estimated GFR 51; Glucose 152 mg/dL (83-110); Potassium 3.3 mmol/L (3.5-5.1); Sodium 138 mmol/L (136-145)
[2024-05-28] MEDS ORDERED: Furosemide 40 MG TAB PO SCH (07:30)
[2024-05-28] MEDS: Potassium Bicarbonate/Cit Ac 20 MEQ TAB PO SCH (08:29)
[2024-05-28] MEDS ORDERED: Cholecalciferol 1,000 UNITS (25 MCG) TAB PO SCH (09:00)
[2024-05-28] MEDS ORDERED: Insulin Regular, Human 100 UNIT/ML 10 ML VIAL SC PRN (11:39)
[2024-05-28] MEDS: Insulin Regular, Human 100 UNIT/ML 10 ML VIAL SC PRN (12:39)
[2024-05-29 04:24] LABS: #Basophils 0.03 10x3/uL (0.0-0.2); %Basophils 0.4 % (0.0-1.0); %Eosinophils 2.4 % (0.0-10.0); %Lymphocytes 17.1 % (21.0-51.0); %Monocytes 12.8 % (0.0-10.0); Hematocrit 46.4 % (36.0-47.0); Hemoglobin 14.9 g/dL (12.0-16.0); Mean Corpuscular HGB CONC 32.1 g/dL (32.0-36.0); Mean Corpuscular Volume 87.2 fL (78.0-98.0); Mean Platelet Volume 10.4 fL (7.4-10.4); Platelet Count 197 10x3/uL (130-400); RBC Distribution Width 15.4 % (11.5-14.5); Red Blood Cell (RBC) Count 5.32 mill/uL (4.20-5.40)
[2024-05-29 04:41] LABS: Calc. Creatinine Clearance 27 mL/min (70-130); Estimated GFR 43
[2024-05-29 04:42] LABS: Anion Gap 16 mmol/L (10-20); BUN (Urea Nitrogen) 50 mg/dL (9.8-20.1); Carbon Dioxide 27 mmol/L (23-31); Chloride 95 mmol/L (98-107); Glucose 169 mg/dL (83-110); Magnesium 2.2 mg/dL (1.6-2.6); Potassium 3.9 mmol/L (3.5-5.1); Sodium 134 mmol/L (136-145)
[2024-05-29] MEDS: Acetaminophen 325 MG TAB PO PRN (09:07)
[2024-05-29 15:40] LABS: Bacteria/HPF None Seen HPF (None Seen); Bilirubin Negative (Negative); Blood, Urine Negative (Negative); CAUTI Indications for Culture Dysuria,urgency,freq; Clarity Clear (Clear); Glucose, Urine (Dipstick) Greater than 1000 mg/dL (Negative); Ketone, Urine Negative (Negative); Leukocyte Negative Leu/uL (Negative); Nitrite Negative (Negative); Protein, Urine (Dipstick) 10 mg/dL (Neg-Trace); RBC/HPF None Seen HPF (0-3); Squamous Epithelial 0-3 HPF (0-3); Urobilinogen Normal mg/dL (Less than 2); WBC/HPF None Seen HPF (0-3); pH, Urine 6.5 (5.0-9.0)
[2024-05-29 15:44] LABS: Urine Culture Reflex No No
[2024-05-30 05:00] LABS: #Basophils 0.04 10x3/uL (0.0-0.2); %Basophils 0.5 % (0.0-1.0); %Eosinophils 1.2 % (0.0-10.0); %Lymphocytes 16.6 % (21.0-51.0); %Monocytes 11.1 % (0.0-10.0); %Neutrophils 70.2 % (42.0-75.0); Hematocrit 48.7 % (36.0-47.0); Hemoglobin 15.7 g/dL (12.0-16.0); Mean Corpuscular HGB CONC 32.2 g/dL (32.0-36.0); Mean Corpuscular Hemoglobin 27.5 pg (27.0-31.0); Mean Corpuscular Volume 85.4 fL (78.0-98.0); Mean Platelet Volume 10.2 fL (7.4-10.4); Platelet Count 238 10x3/uL (130-400); RBC Distribution Width 15.2 % (11.5-14.5)
[2024-05-30 05:15] LABS: Anion Gap 16 mmol/L (10-20); BUN (Urea Nitrogen) 58 mg/dL (9.8-20.1); Calc. Creatinine Clearance 23 mL/min (70-130); Calcium 10.2 mg/dL (7.8-10.44); Carbon Dioxide 28 mmol/L (23-31); Chloride 96 mmol/L (98-107); Estimated GFR 35; Glucose 207 mg/dL (83-110); Potassium 4.1 mmol/L (3.5-5.1); Sodium 136 mmol/L (136-145)
[2024-05-30] MEDS: Senokot S 8.6-50 MG TAB PO PRN (08:55)
[2024-05-30] MEDS: Spironolactone 25 MG TAB PO SCH (08:55)
[2024-05-30 14:38] VITALS: TEMP 98.1
[2024-05-30 14:41] VITALS: BMI 24.4
[2024-05-30] MEDS: Carvedilol 6.25 MG TAB PO SCH (16:32)
[2024-05-30 16:34] VITALS: BP 147/67
[2024-05-31] MEDS ORDERED: Potassium Bicarbonate/Cit Ac 20 MEQ TAB PO SCH (08:00)
[2024-05-31] MEDS ORDERED: Spironolactone 25 MG TAB PO SCH (08:00)
[2024-05-31] MEDS ORDERED: Lisinopril 10 MG TAB PO SCH (09:00)
== END 2024-05-30 17:54 | DRG 280 ==
LOC: ERS 13:13 → ERHOLD 15:31 → 2NO 20:35
PROVIDERS: ADMIT Family Medicine; ATTEND Internal Medicine
DX: I13.0 Hypertensive heart and chronic kidney disease with heart failure and stage 1 through stage 4 chronic kidney disease, or unspecified chronic kidney disease (principal); I50.23 Acute on chronic systolic (congestive) heart failure; I21.4 Non-ST elevation (NSTEMI) myocardial infarction; J18.9 Pneumonia, unspecified organism; J96.01 Acute respiratory failure with hypoxia; I48.20 Chronic atrial fibrillation, unspecified; I25.10 Atherosclerotic heart disease of native coronary artery without angina pectoris; Z66 Do not resuscitate; E11.22 Type 2 diabetes mellitus with diabetic chronic kidney disease; E78.5 Hyperlipidemia, unspecified; N18.30 Chronic kidney disease, stage 3 unspecified; Z86.73 Personal history of transient ischemic attack (TIA), and cerebral infarction without residual deficits; Z95.0 Presence of cardiac pacemaker; Z91.041 Radiographic dye allergy status; Z90.49 Acquired absence of other specified parts of digestive tract; Z90.710 Acquired absence of both cervix and uterus
CPT/HCPCS: 36415; 36416; 71045; 80048; 80053; 81001; 83735; 83880; 84145; 84443; 84484; 85025; 87428; 93005; 93306; 96374; 96375; J0692; J1650; J1815; J1940; J3475; J3490

== ENCOUNTER 2024-12-24 11:08 | Emergency (ER) | payer MEDICARE, BC ==
[2024-12-24] MEDS ORDERED: Cefepime 2 GM VIAL ONE (11:13)
[2024-12-24] MEDS ORDERED: NOREPINEPHRINE 8 MG/250 ML-D5W 250 ML ONE (11:13)
[2024-12-24] MEDS ORDERED: Vasopressin In 0.9 % NaCl 100 ML ONE (11:13)
[2024-12-24 11:26] LABS: Analyzer IN Cardio ER; Base Excess (BEa) -11.1 mEq/L (-2.0 to +3.0); CO2 Tension 26.5 mmHg (35.0-45.0); Calcium, Ionized (arterial) 1.10 mmol/L (1.12-1.30); Hematocrit-ABG 44 % (36.0-47.0); Hemoglobin (Hb) 15.0 g/dL (12.0-16.0); O2 Tension (PaO2), arterial 135.5 mmHg (> 60.0); Potassium - ABG Lab 5.96 mmol/L (3.70-5.30); pH, Arterial 7.315 (7.35-7.45)
[2024-12-24 11:34] LABS: Actual Bicarbonate (HCO3a) 13.2 mEq/L (22-28); Puncture Site Right Brachial art
[2024-12-24 11:35] LABS: ALV-art Gradient 544.375 mmHg (0-20)
[2024-12-24 11:42] LABS: Bacteria/HPF 4+ HPF (None Seen); CAUTI Indications for Culture Urological Procedure; Glucose, Urine (Dipstick) Greater than 1000 mg/dL (Negative); Leukocyte 75 Leu/uL (Negative); Protein, Urine (Dipstick) 20 mg/dL (Neg-Trace); RBC/HPF None Seen HPF (0-3); Specific Gravity, Urine 1.016 (1.002-1.036)
[2024-12-24 11:42] LABS: #Basophils 0.03 10x3/uL (0.0-0.2); #Eosinophils 0.23 10x3/uL (0.0-0.7); #Monocytes 0.54 10x3/uL (0.11-0.59); #Neutrophils 7.31 10x3/uL (1.40-6.50); %Basophils 0.2 % (0.0-1.0); %Eosinophils 1.8 % (0.0-10.0); %Lymphocytes 36.2 % (21.0-51.0); %Monocytes 4.2 % (0.0-10.0); %Neutrophils 56.7 % (42.0-75.0); Hematocrit 44.5 % (36.0-47.0); Hemoglobin 13.9 g/dL (12.0-16.0); Mean Corpuscular Hemoglobin 30.0 pg (27.0-31.0); Mean Corpuscular Volume 95.9 fL (78.0-98.0); Platelet Count 165 10x3/uL (130-400); Red Blood Cell (RBC) Count 4.64 mill/uL (4.20-5.40); White Blood Cell (WBC) Count 12.90 10x3/uL (4.8-10.8)
[2024-12-24 11:44] LABS: Urine Culture Reflex Yes Yes
[2024-12-24 12:17] LABS: ALT (SGPT) 55 U/L (Less than 34); AST (SGOT) 174 U/L (11-34); Albumin 3.4 g/dL (3.1-4.5); Alkaline Phosphatase 121 U/L (40-110); Anion Gap 26 mmol/L (10-20); BUN (Urea Nitrogen) 73 mg/dL (9.8-20.1); Bilirubin, Total 0.8 mg/dL (0.3-1.2); CK (CPK) 57 U/L (29-168); Calc. Creatinine Clearance 0 mL/min (70-130); Calcium 9.1 mg/dL (7.8-10.44); Carbon Dioxide 14 mmol/L (23-31); Chloride 106 mmol/L (98-107); Globulin 3.6 g/dL (2.4-3.5); Glucose 255 mg/dL (83-110); Lipase 68 U/L (8-78); Magnesium 2.5 mg/dL (1.6-2.6); Potassium 5.3 mmol/L (3.5-5.1); Sodium 141 mmol/L (136-145)
== END 2024-12-24 11:36 ==
LOC: ERS 11:08
DX: G93.41 Metabolic encephalopathy (principal); E87.5 Hyperkalemia; I95.9 Hypotension, unspecified; E11.9 Type 2 diabetes mellitus without complications; I10 Essential (primary) hypertension; Z95.0 Presence of cardiac pacemaker; R41.82 Altered mental status, unspecified
CPT/HCPCS: 36600; 51702; 71045; 80053; 81001; 82550; 82805; 83605; 83690; 83735; 84145; 85025; 87086; 94002; 94760; 96365; 96366; 96367; 96375; 99285; J0692; 87040